=== PATIENT | male | born 1990 | race Native Hawaiian/Other Pacific Islander ===

== ENCOUNTER 2021-07-24 11:46 | Outpatient (CLI) | payer OTHER, SELFPAY ==
--- NOTE | 2021-07-24 12:13 | XR_ITS ---
WS: [id number] Lumbar spine, 3 views, 07/24/2021 Clinical Data: LEFT LUMBAR RADICULOPATHY Comparison: None. Findings: No compression fractures or subluxation is seen. No disc space narrowing is seen. The transverse proc esses and SI joints are normal. XR/XR lumbar spine 2-3V* [id number] Impression: Negative lumbar spine.
--- NOTE | 2021-07-24 12:13 | XR_ITS ---
WS: [id number] Right shoulder, 2 views, 07/24/2021 Clinical Data: R SHOULDER PAIN Comparison: None. Findings: No fractures or dislocations are seen. The AC joint is normal. The adjacent right clavicle, right sca pula and ribs are normal. The soft tissues are unremarkable. XR/XR shoulder RT min 2V* [id number] Impression: Negative right shoulder.
== END 2021-07-24 11:47 | disposition home or self-care (01) ==
PROVIDERS: PCP Family Medicine; Visit Provider Family Medicine
DX: M54.16 Radiculopathy, lumbar region (principal); M25.551 Pain in right hip
CPT/HCPCS: 72100; 73030

== ENCOUNTER → 2023-07-25 12:03 | Outpatient (BNVA) | payer OTHER, SELFPAY | PROVIDERS: PCP Family Medicine; Visit Provider Family Medicine | DX: M62.81 Muscle weakness (generalized) (principal); R29.2 Abnormal reflex; R20.0 Anesthesia of skin; E53.8 Deficiency of other specified B group vitamins; E03.9 Hypothyroidism, unspecified; Z51.81 Encounter for therapeutic drug level monitoring; M54.12 Radiculopathy, cervical region; M54.16 Radiculopathy, lumbar region | CPT/HCPCS: 80053; 80074; 82550; 82552; 82607; 84443; 85025; 86038; 86141; 86592; 87806 ==

== ENCOUNTER 2023-10-16 16:06 | Outpatient (CLI) | payer OTHER, SELFPAY ==
--- NOTE | 2023-10-16 16:48 | XRR_ITS ---
PROCEDURE INFORMATION: Exam: XR Cervical Spine Exam date and time: 10/16/2023 4:50 PM Age: 33 years old Clinical indication: Radicular pain (radiculopathy); Cervical region; Additional info: Cervical radiculopathy, arm weakness TECHNIQUE: Imaging protocol: Radiologic exam of the cervical spine. Views: 2 or 3 views. COMPARISON: CR XR shoulder RT min 2V* [id number] 07/24/2021 12:20 PM FINDINGS: Bones/joints: Grade 1 retrolisthesis of C5. Moderate degenerative disc disease at C5-C6. The atlantoaxial interval and craniocervical junction are unremarkable. No acute fracture is identified. Soft tissues: No prevertebral soft tissue swelling is seen. XR/XR cervical spine 3V* [id number] IMPRESSION: 1. Moderate degenerative disc disease at C5-C6. 2. No acute fracture is seen.
--- NOTE | 2023-10-16 16:48 | XRR_ITS ---
PROCEDURE INFORMATION: Exam: XR Lumbosacral Spine Exam date and time: 10/16/2023 4:50 PM Age: 33 years old Clinical indication: Low back pain; Additional info: Lumbar radiculopathy, brisk reflexes TECHNIQUE: Imaging protocol: Radiologic exam of the lumbosacral spine. Views: 2 or 3 views. COMPARISON: CR XR lumbar spine 2-3V* [id number] 07/24/2021 12:20 PM FINDINGS: Bones/joints: There are 5 lumbar type vertebral bodies. Grade 1 anterolisthesis of L5. Mild degenerative disc disease in the lumbar spine; similar to prior. No acute fracture is seen. The sacroiliac joints are grossly symmetric. The sacrum is partially obscured by overlying bowel gas. Soft tissues: No gross soft tissue swelling. XR/XR lumbar spine 2-3V* [id number] IMPRESSION: 1. Mild degenerative disc disease in the lumbar spine; similar to prior. 2. No acute fracture is seen.
== END 2023-10-16 16:07 | disposition home or self-care (01) ==
LOC: RAD 16:11
PROVIDERS: PCP Family Medicine; Visit Provider Internal Medicine
DX: M50.322 Other cervical disc degeneration at C5-C6 level (principal); R29.2 Abnormal reflex; M54.16 Radiculopathy, lumbar region; M54.12 Radiculopathy, cervical region; M62.81 Muscle weakness (generalized); S59.909A Unspecified injury of unspecified elbow, initial encounter; M43.16 Spondylolisthesis, lumbar region; S52.121A Displaced fracture of head of right radius, initial encounter for closed fracture
CPT/HCPCS: 72040; 72100; 73080

== ENCOUNTER 2023-10-17 06:00 | Outpatient (CLI) | payer OTHER, SELFPAY | END 2023-10-17 23:59 | disposition home or self-care (01) | LOC: SPT 10-20 11:22 | PROVIDERS: PCP Family Medicine; Visit Provider Specialist | DX: Z46.89 Encounter for fitting and adjustment of other specified devices (principal); M25.521 Pain in right elbow | CPT/HCPCS: L3761 ==

== ENCOUNTER → 2023-10-17 10:14 | Outpatient (BNVA) | payer OTHER, SELFPAY | PROVIDERS: PCP Family Medicine; Referring Provider Nurse Practitioner; Visit Provider Specialist | DX: S59.901A Unspecified injury of right elbow, initial encounter; V00.131A Fall from skateboard, initial encounter; Y93.51 Activity, roller skating (inline) and skateboarding | CPT/HCPCS: 73080 ==

== ENCOUNTER 2023-10-24 10:33 | Outpatient (CLI) | payer OTHER, SELFPAY ==
--- NOTE | 2023-10-24 15:15 | CTR_ITS ---
PROCEDURE INFORMATION: Exam: CT Right Upper Extremity Without Contrast, Elbow Exam date and time: 10/24/2023 10:41 AM Age: 33 years old Clinical indication: Injury or trauma; Other: Skateboarding; Blunt trauma (contusions or hematomas); Elbow; Right; Injury date: 9 days ago; Additional info: Elbow injury TECHNIQUE: Imaging protocol: Computed tomography of the right upper extremity without contrast. Exam focused on the elbow. Radiation optimization: All CT scans at this facility use at least one of these dose optimization techniques: automated exposure control; mA and/or kV adjustment per patient size (includes targeted exams where dose is matched to clinical indication); or iterative reconstruction. COMPARISON: CR XR elbow RT min 3V* [id number] 10/17/2023 10:19 AM RADIATION DOSE METRICS: Total DLP (mGy-cm): 94.08 FINDINGS: Bones/joints: There are displaced fracture fragments along the posterior aspect of the lateral humeral condyle. The fracture fragments are likely from the posterior capitellum/posterior aspect of the lateral humeral condyle. An elbow hemarthrosis is noted. Soft tissues: Subcutaneous edema/soft tissue swelling noted posteriorly. CT/CT elbow RT wo con* [id number] IMPRESSION: 1. Displaced fracture fragments along the posterior aspect of the lateral humeral condyle. The fracture fragments are likely from the posterior capitellum/posterior aspect of the lateral humeral condyle. 2. An elbow hemarthrosis is noted. 3. Subcutaneous edema/soft tissue swelling noted posteriorly.
== END 2023-10-24 10:34 | disposition home or self-care (01) ==
LOC: RAD 10:33
PROVIDERS: PCP Family Medicine; Visit Provider Specialist
DX: S42.452A Displaced fracture of lateral condyle of left humerus, initial encounter for closed fracture (principal); M25.021 Hemarthrosis, right elbow; R22.31 Localized swelling, mass and lump, right upper limb; V00.138A Other skateboard accident, initial encounter
CPT/HCPCS: 73200

== ENCOUNTER → 2023-11-19 15:55 | Outpatient (BNVA) | payer OTHER, SELFPAY | PROVIDERS: PCP Family Medicine; Visit Provider Specialist | DX: S59.901D Unspecified injury of right elbow, subsequent encounter; V00.131D Fall from skateboard, subsequent encounter | CPT/HCPCS: 73080 ==

== ENCOUNTER 2023-11-20 11:00 | Outpatient (CLI) | payer OTHER, SELFPAY ==
--- NOTE | 2023-11-20 11:00 | MR_ITS ---
WS: [id number] MRI RIGHT ELBOW WITHOUT CONTRAST. COMPARISON: Radiographs 11/19/2023. Prior CT 10/24/2023 Multiplanar, multisequence imaging is performed without contrast. Mild asymmetric widening of the lateral elbow joint. This is in part due to complete tear involving t he radial collateral ligament with a large fluid gap. The common extensor tendon does appear to be in tact. The ulnar collateral ligament also appears intact. There is a small amount of fluid adjacent to the ulnar collateral ligament but no full-thickness tear. Edema with a healing fracture involving the radial head. There is a radial head fracture is also note d on the CT but better seen by MRI due to the of marrow edema. This is a nondisplaced medial radial h ead fracture extending to the articular surface. No fracture fragment. Radial edema extends into the proximal diaphysis. Ulna is intact. Large amount of marrow edema in the lateral humeral condyle. Prev iously described avulsion fractures appear to be from the posterior lateral surface of the humeral co ndyle. Moderate size joint effusion. Biceps tendon appears appropriate. No significant amount of musc le edema or atrophy. Avulsion fragments are difficult to visualize but on the prior CT were associate d with the fluid posterior to the lateral femoral condyle. MR/MR elbow RT wo con* [id number] IMPRESSION: 1. Complete tear radial collateral ligament. 2. Marrow edema in the lateral humeral condyle with small avulsion fractures f rom the posterior lateral surface of the humeral condyle. 3. There is an additional healing fracture involving the medial surface of the radial head with additional marrow edema in the proximal radius. 4. Mild asymmetric widening of the lateral elbow joint. This is predominantly due to the radial collateral ligament tear.
== END 2023-11-20 11:06 | disposition home or self-care (01) ==
PROVIDERS: PCP Family Medicine; Visit Provider Specialist
DX: S53.21XA Traumatic rupture of right radial collateral ligament, initial encounter (principal); S52.121A Displaced fracture of head of right radius, initial encounter for closed fracture; S42.431A Displaced fracture (avulsion) of lateral epicondyle of right humerus, initial encounter for closed fracture
CPT/HCPCS: 73221